=== PATIENT | male | born 1990 | race Caucasian/White ===

== ENCOUNTER 2017-06-23 00:39 | Emergency (ER) | payer OTHER ==
[~2017-06-23] VITALS: Ht 170.2 cm; Wt 65.8 kg
== END 2017-06-23 01:14 | disposition home or self-care (01) ==
LOC: ED 00:39
DX: S70.11XA Contusion of right thigh, initial encounter (principal); W50.3XXA Accidental bite by another person, initial encounter
CPT/HCPCS: 99282